=== PATIENT | male | born 1980 | race African-American/Black ===

== ENCOUNTER 2017-05-07 19:13 | Emergency (ER) | payer SELFPAY ==
[~2017-05-07] VITALS: Ht 177.8 cm; Wt 80.7 kg
--- NOTE | 2017-05-07 19:15 | NUR ---
TO BED 3 BIB PARAMEDICS C/O SYNCOPE, (+) KO, POSTERIOR SCALP LAC NOTED. RECEIVED PT AAOX4 NO ACUTE DISTRESS NOTED, RESP EVEN AND UNLABORED. PLACE PT ON CARDAIC MONITORING, CONTINUOUS POX. SL 20G TO LAC AIR SAMPLER. PENDING ER MD DINH.
--- NOTE | 2017-05-07 19:17 | NUR ---
ER RAMBO DUMONT AT BEDSIDE TO EVAL PT WITH ORDERS RECEIVED. WILL CARRY OUT ORDERS.
--- NOTE | 2017-05-07 19:24 | NUR ---
PT TRANSPORTED TO RADIOLOGY FOR CT HEAD.
[2017-05-07] MEDS ORDERED: IV NS 0.9% 1,000 ML BAG IV ONE (19:30)
[2017-05-07] MEDS ORDERED: TDAP [DIPH/PERTUSSIS/TET] 0.5 ML VIAL IM ONE (19:30)
[2017-05-07] MEDS ORDERED: ONDANSETRON HCL/PF 4 MG/2 ML VIAL IVP ONE (19:30)
--- NOTE | 2017-05-07 19:50 | NUR ---
PT BACK FROM RADIOLOGY. PENDING CT RESULT.
--- NOTE | 2017-05-07 19:59 | NUR ---
CLIENT EXPERIENCE CONSULTANT AT BEDSIDE FOR BLOOD DRAW.
[2017-05-07 20:05] LABS: BASOPHILS # (AUTO) 0.1 /CMM (0.0-0.2); BASOPHILS % (AUTO) 1.3 % (0.0-2.0); EOSINOPHILS # (AUTO) 0.1 /CMM (0.0-0.7); EOSINOPHILS % (AUTO) 1.1 % (0.0-6.0); HEMATOCRIT 44 % (39-51); HEMOGLOBIN 15.2 g/dL (13.5-17.5); LYMPHOCYTES # (AUTO) 2.2 /CMM (0.8-4.8); LYMPHOCYTES % (AUTO) 45.4 % (20.0-44.0); MEAN CORPUSCULAR HEMOGLOBIN 35 PG (26.0-33.0); MEAN CORPUSCULAR HGB CONC 35 g/dl (31.0-36.0); MEAN CORPUSCULAR VOLUME 100 fL (80-96); MONOCYTES # (AUTO) 0.4 /CMM (0.1-1.30); MONOCYTES % (AUTO) 7.6 % (2.0-12.0); NEUTROPHILS # (AUTO) 2.3 /CMM (1.8-8.9); NEUTROPHILS % (AUTO) 44.6 % (43.0-81.0); PLATELET COUNT (AUTO) 121 /CMM (150-450); RDW COEFFICIENT OF VARIATION 11.2 (11.5-15.0); RED BLOOD CELL COUNT(AUTO) 4.37 MIL/uL (4.5-6.0); WHITE BLOOD COUNT (AUTO) 5.1 K/uL (4.3-11.0)
[2017-05-07 20:18] LABS: CALCIUM, SERUM 8.2 mg/dL (8.5-10.1); CARBON DIOXIDE 32 mmol/L (21-32); CHLORIDE 104 mmol/L (98-107); CREATININE 1.1 mg/dL (0.6-1.3); GLUCOSE 91 mg/dL (74-106); POTASSIUM 4.3 mmol/L (3.5-5.1); SODIUM SERUM 140 mmol/L (136-145); UREA NITROGEN, BLOOD 16 mg/dL (7-18)
[2017-05-07 20:25] LABS: TROPONIN I < 0.017 ng/mL (0.00-0.056)
[2017-05-07 21:26] LABS: INR 1.06 (0.87-1.13)
--- NOTE | 2017-05-07 21:50 | NUR ---
IV removed. Catheter intact and site benign. Pressure and 4x4 applied to site. No bleeding noted. Patient discharged to home in stable condition. Written and verbal after care instructions given. Patient verbalizes understanding of instruction. ambulatory with a steady gait
[2017-05-07 21:51] VITALS: BP 123/61
== END 2017-05-07 21:51 | disposition home or self-care (01) ==
LOC: ER 19:16
DX: S01.01XA Laceration without foreign body of scalp, initial encounter (principal); R55 Syncope and collapse; F10.10 Alcohol abuse, uncomplicated; X58.XXXA Exposure to other specified factors, initial encounter; Y93.89 Activity, other specified; Y92.89 Other specified places as the place of occurrence of the external cause; Y99.8 Other external cause status
CPT/HCPCS: 12001; 36415; 70450; 80048; 84484; 85025; 85730; 93005; 96360; 99285; A4606; A6402; J7030; Z7610

== ENCOUNTER 2017-05-14 13:21 | Emergency (ER) | payer SELFPAY ==
[~2017-05-14] VITALS: Ht 177.8 cm; Wt 70.8 kg
[2017-05-14 13:35] VITALS: BP 185/81
== END 2017-05-14 14:07 | disposition home or self-care (01) ==
LOC: ER 13:24
DX: S01.01XD Laceration without foreign body of scalp, subsequent encounter (principal); X58.XXXD Exposure to other specified factors, subsequent encounter
CPT/HCPCS: 99281; A4606; Z7610; Z7502